=== PATIENT | female | born 1995 | race Caucasian/White ===

== ENCOUNTER 2017-07-17 23:21 | Emergency (ER) | payer OTHER ==
--- NOTE | 2017-07-17 23:26 | PDOC ---
History of Present Illness - General History Source: Patient Exam Limitations: Other - History of Present Illness Initial Comments: 07/17/17 23:37 The patient is a 21 year old approximately 12 week female(), accompanied by friend and boyfriend, with no significant past medical history, who presents to the emergency department nonverbal, short of breath, and anxious since earlier this evening. As per boyfriend, the patient was having an argument with him earlier tonight, and all of sudden began to cry and did not want to talk to him. Per boyfriend, patient became short of breath. Patients history is limited, as she does not wish to talk to staff or answer questions. Allergies: NKDA Past Surgical History: None reported Social History: Non smoker. No ETOH or recreational drug use. <Alan Herndon - Last Filed: 07/17/17 23:37> - General History Source: Patient <RobbJames duran - Last Filed: 07/18/17 01:32> - General Stated Complaint: ALTERED Time Seen by Provider: 07/17/17 23:26 Past History <Alan Herndon - Last Filed: 07/17/17 23:37> <James Amos - Last Filed: 07/18/17 01:32> - Past Medical History Allergies/Adverse Reactions: Allergies Allergy/AdvReac Type Severity Reaction Status Date / Time No Known Allergies Allergy Verified 07/17/17 23:33 Home Medications: Ambulatory Orders NK [No Known Home Medication] 07/17/17 Review of Systems - Review of Systems Able to Perform ROS?: No Comments:: 07/17/17 23:38 Limited, as patient does not wish to answer questions. <Alan Herndon - Last Filed: 07/17/17 23:37> *Physical Exam - Vital Signs Last Vital Signs Temp Pulse Resp BP Pulse Ox 97.6 F 84 18 128/89 100 07/17/17 23:28 07/17/17 23:28 07/17/17 23:28 07/17/17 23:28 07/17/17 23:28 - Physical Exam Comments: 07/17/17 23:38 GENERAL: Anxious-appearing, well-nourished. No acute distress. Accucheck was 88. HEENT: Normocephalic, atraumatic. PERRL, EOM intact. CARDIOVASCULAR: Normal S1, S2. Regular rate and rhythm. PULMONARY: Clear to auscultation bilaterally. ABDOMEN: Soft, non-distended, non-tender. EXTREMITIES: Normal ROM in all four extremities. No gross deformities. SKIN: Warm, dry. No rash NEUROLOGICAL: No focal neurological deficits. <Alan Herndon - Last Filed: 07/17/17 23:37> ED Treatment Course - LABORATORY CBC & Chemistry Diagram: 07/17/17 23:28 07/17/17 23:28 <Alan Herndon - Last Filed: 07/17/17 23:37> - LABORATORY CBC & Chemistry Diagram: 07/17/17 23:28 07/17/17 23:28 <James Amos - Last Filed: 07/18/17 01:32> Medical Decision Making - Medical Decision Making 07/18/17 01:31 Dr. Amos: The scribe's documentation has been prepared under my direction and personally reviewed by me in its entirery. I confirm that the note above accurately reflects all work, treatment, procedures, and medical decision making performed by me. <James Amos - Last Filed: 07/18/17 01:32> *DC/Admit/Observation/Transfer - Attestations Scribe Attestion: 07/17/17 23:39 Documentation prepared by Alan Herndon, acting as medical staff director for James Amos DO. <Alan Herndon - Last Filed: 07/17/17 23:37> - Discharge Dispostion Admit: No <James Amos - Last Filed: 07/18/17 01:32> Diagnosis at time of Disposition: Anxiety - Discharge Dispostion Disposition: HOME Condition at time of disposition: Stable - Referrals Referrals: STAFF,NOT ON [Primary Care Provider] - Phong Bagley MD [Staff Physician] - - Patient Instructions Printed Discharge Instructions: DI for Anxiety -- Adult
[2017-07-17] MEDS ORDERED: SODIUM CHLORIDE 1,000 ML IV STA (23:29)
[2017-07-17 23:30] VITALS: TEMP 97.6; BMI 24.1
[2017-07-17 23:38] LABS: EOSINOPHIL 1.6 % (0-4.5); MCH 31.9 pg (25.7-33.7); MCHC 34.1 g/dl (32.0-36.0); MEAN CELL VOLUME 93.5 fl (80-96); MEAN PLT VOLUME 9.3 fl (7.5-11.1); NEUTROPHILS 63.8 % (42.8-82.8); PLATELET COUNT 227 K/MM3 (134-434); RDW 13.1 % (11.6-15.6); WHITE BLOOD COUNT 11.9 K/mm3 (4.0-10.0)
[2017-07-18 00:38] LABS: ALBUMIN 3.6 g/dl (3.4-5.0); ANION GAP 11 (8-16); BILIRUBIN,TOTAL 0.4 mg/dL (0.2-1.0); CALCIUM 8.8 mg/dL (8.5-10.1); CO2 22 mmol/L (21-32); CREATININE 0.5 mg/dL (0.55-1.02); GLUCOSE,RANDOM 76 mg/dL (74-106); SGOT/AST 11 U/L (15-37); SGPT/ALT 15 U/L (12-78); TOT PROT 7.3 g/dl (6.4-8.2)
[2017-07-18 00:39] LABS: ALK PHOS 54 U/L (45-117); MAGNESIUM 2.1 mg/dL (1.8-2.4)
[2017-07-18 00:44] VITALS: BP 109/72; PULSE 74
[2017-07-18 01:19] LABS: URINE MARIJUANA THC NEGATIVE ng/ml (CUTOFF=50)
[2017-07-18 09:31] LABS: URINE APPEARANCE Clear; URINE BILIRUBIN Negative (NEGATIVE); URINE BLOOD Negative (NEGATIVE); URINE COLOR YELLOW; URINE GLUCOSE (UA) Negative (NEGATIVE); URINE KETONE 1+ (NEGATIVE); URINE LEUK ESTERASE 1+ (NEGATIVE); URINE NITRITE Negative (NEGATIVE); URINE PROTEIN Negative (NEGATIVE); URINE UROBILINOGEN 0.2 (0.2-1.0)
[2017-07-18 09:32] LABS: URINE BACTERIA MODERATE /hpf (NEGATIVE); URINE RBC 0-3 /hpf (0-3)
== END 2017-07-18 01:33 | disposition home or self-care (01) ==
LOC: JER 23:21
PROC: 3E0337Z Introduction of Electrolytic and Water Balance Substance into Peripheral Vein, Percutaneous Approach (ICD-10-PCS; principal; 2017-07-17)
DX: O99.341 Other mental disorders complicating pregnancy, first trimester (principal); F41.8 Other specified anxiety disorders; Z3A.12 12 weeks gestation of pregnancy
CPT/HCPCS: 36415; 80053; 80307; 81003; 81015; 83690; 83735; 84702; 85025; 99282-25